=== PATIENT | female | born 1960 | race Caucasian/White ===

== ENCOUNTER → 2016-08-10 | Outpatient (CLI) | payer OTHER ==
--- NOTE | 2016-08-10 15:33 | MA ---
Screening Digital Mammogram With Tomosynthesis and iCAD Indication: Routine screening. Technique: Standard digital CC projections were obtained. Digital breast tomosynthesis was performed in the MLO projection with reconstruction at 1.0 mm slice thickness. Composite MLO views were recons tructed. This examination was processed by the iCAD computer-aided detection system. Comparison: August 2015, August 2014, July 2013, August 2012 and July 2011 Breast density: Type B. Findings: CAD was reviewed. No suspicious microcalcifications, mass, or architectural distortion. Impression: Negative mammogram BI-RADS: 1 - Negative Recommendation: Routine screening is recommended in one year. [facility] will send a result letter to the patient. Negative mammography should not preclude additional workup of a clinically suspicious finding. The patient's information is entered into a reminder system with a target due date for her next mammo gram.
== END ==
LOC: FIMAGING 12:21
DX: Z12.31 Encounter for screening mammogram for malignant neoplasm of breast (principal)
CPT/HCPCS: G0202

== ENCOUNTER → 2017-08-23 | Outpatient (CLI) | payer OTHER | LOC: FIMAGING 10:00 | PROVIDERS: ATTEND Family Medicine | DX: Z12.31 Encounter for screening mammogram for malignant neoplasm of breast (principal); Z80.3 Family history of malignant neoplasm of breast ==

== ENCOUNTER → 2018-08-25 | Outpatient (CLI) | payer BC, OTHER | LOC: FIMAGING 08:31 | PROVIDERS: ATTEND Family Medicine | DX: Z12.31 Encounter for screening mammogram for malignant neoplasm of breast (principal); Z80.3 Family history of malignant neoplasm of breast ==